=== PATIENT | female | born 1960 | race African-American/Black ===

== ENCOUNTER 2023-06-02 04:43 | Emergency (ER) | payer OTHER ==
[~2023-06-02] VITALS: Ht 158.8 cm; Wt 73.0 kg
[2023-06-02 05:05] VITALS: O2SAT 100
[2023-06-02 05:45] LABS: BASOPHILS % 0.6 % (0.0-2.0); EOSINOPHILS % 1.7 % (0.0-5.0); HEMATOCRIT. 33.7 % (36.0-48.0); HEMOGLOBIN. 11.6 g/dL (12.0-16.0); LYMPHOCYTES % 31.2 % (20.0-50.0); MEAN CORPUSCULAR HEMOGLOBIN 31.3 pg (28.0-32.0); MEAN CORPUSCULAR HGB CONC 34.3 g/dL (31.0-37.0); MEAN CORPUSCULAR VOLUME 91.2 fL (81.0-99.0); MEAN PLATELET VOLUME 8.1 fl (7.4-10.4); MONOCYTES % 5.6 % (2.0-8.0); NEUTROPHILS % 60.9 % (40.0-76.0); PLATELET 254 x1000/uL (130-400); RED CELL DISTRIBUTION WIDTH 12.6 % (11.6-14.6); WHITE BLOOD COUNT 6.2 x1000/uL (4.5-11.0)
[2023-06-02 05:46] LABS: CLARITY URINE CLEAR (CLEAR); COLOR URINE YELLOW (YELLOW); GLUCOSE URINE TRACE (NEGATIVE); KETONES URINE NEGATIVE (NEGATIVE); LEUKOCYTE ESTERASE URINE NEGATIVE (NEGATIVE); NITRITE URINE NEGATIVE (NEGATIVE); OCCULT BLOOD URINE NEGATIVE (NEGATIVE); PROTEIN URINE 1+ (NEGATIVE); SPECIFIC GRAVITY URINE 1.024 (1.005-1.030)
[2023-06-02 05:58] LABS: ALANINE AMINOTRANSFERASE 34 IU/L (10-49); ALBUMIN 4.1 g/dL (3.2-4.8); ASPARTATE AMINOTRANSFERASE 43 IU/L (<34); BILIRUBIN TOTAL 0.6 mg/dL (0.1-1.0); CALCIUM 9.1 mg/dL (8.7-10.4); CARBON DIOXIDE 27 mEq/L (21-32); CHLORIDE 108 mEq/L (98-107); CREATININE 0.8 mg/dL (0.6-1.0); GLUCOSE 136 mg/dL (70-105); POTASSIUM 3.8 mEq/L (3.5-5.1); PROTEIN TOTAL 6.2 g/dL (6.0-8.3); SODIUM 141 mEq/L (136-145); UREA NITROGEN BLOOD 9 mg/dL (9-23)
[2023-06-02 06:27] LABS: BACTERIA URINE TRACE; RBC URINE NONE SEEN /hpf (0-2); SQUAMOUS EPITHELIAL CELL URINE FEW /lpf (RARE/1+)
[2023-06-02] MEDS ORDERED: IBUPROFEN 400MG TABLET PO ONE (06:30)
[2023-06-02] MEDS ORDERED: ACETAMINOPHEN 325MG TABLET PO ONE (06:30)
[2023-06-02] MEDS ORDERED: ONDANSETRON HCL 4MG TABLET PO ONE (06:30)
[2023-06-02 06:38] VITALS: BP 168/59
[2023-06-02] MEDS ORDERED: TOPUD PO (08:13)
[2023-06-02 09:02] VITALS: PULSE 76; RESP 16; TEMP 97.6
== END 2023-06-02 09:03 | disposition home or self-care (01) ==
LOC: ER 04:43
DX: M54.9 Dorsalgia, unspecified (principal); Z88.0 Allergy status to penicillin; Z98.890 Other specified postprocedural states
CPT/HCPCS: 99284; 80053; 81003; 81025; 85025; 36415; 72100; Q0162